=== PATIENT | male | born 1980 | race Caucasian/White ===

== ENCOUNTER 2016-07-02 13:23 | Emergency (ER) | payer SELFPAY ==
[2016-07-02] MEDS ORDERED: SOLUMEDROL 125 MG/2 ML 125 MG/2 ML PDS IV ONE (13:29)
[2016-07-02] MEDS ORDERED: ALBUTEROL/IPRATROPIUM 1 VIAL SOL INH ONE (13:29)
[2016-07-02 13:35] VITALS: TEMP 100.2
[2016-07-02] MEDS ORDERED: ALBUTEROL/IPRATROPIUM 1 VIAL SOL ONE (13:41)
[2016-07-02] MEDS ORDERED: SOLUMEDROL 125 MG/2 ML 125 MG/2 ML PDS ONE (13:41)
[2016-07-02 14:55] VITALS: O2SAT 98
[2016-07-02 15:06] VITALS: BP 170/103; PULSE 131; RESP 20
== END 2016-07-02 14:40 | disposition home or self-care (01) | DRG 918 ==
LOC: ED 13:23
DX: T63.461A Toxic effect of venom of wasps, accidental (unintentional), initial encounter (principal); T78.2XXA Anaphylactic shock, unspecified, initial encounter
CPT/HCPCS: 99283; J2930; J7620

== ENCOUNTER 2017-08-18 13:33 | Emergency (ER) | payer OTHER ==
[2017-08-18] MEDS ORDERED: HYDROMORPHONE 1 MG/ML SYRINGE IV PRN (13:40)
[2017-08-18] MEDS: SODIUM CHLORIDE 0.9% FLUSH 10 ML SOL IV PRN ×2 (13:50→14:16)
[2017-08-18] MEDS ORDERED: HYDROMORPHONE HCL 2 MG/ML SOL ONE (13:51)
[2017-08-18 14:04] LABS: HEMATOCRIT 45 % (39-53); HEMOGLOBIN 15.1 gm/dl (13.5-17.7); MEAN CORPUSCULAR HEMOGLOBIN 28.3 pg (27.0-32.0); MEAN CORPUSCULAR HGB CONC 33.6 gm/dl (32.0-36.0); MEAN CORPUSCULAR VOLUME 84 fL (80-100)
[2017-08-18] MEDS ORDERED: LORAZEPAM 2 MG/ML 10ML MDV 2 MG/ML VIAL IV PRN (14:06)
[2017-08-18] MEDS ORDERED: LORAZEPAM 2 MG/ML SOL ONE (14:14)
[2017-08-18 14:25] LABS: ALBUMIN 3.9 gm/dl (3.4-5.0); ALKALINE PHOSPHATASE 90 IU/L (46-116); ALT 34 IU/L (14-63); AST 15 IU/L (15-37); BILIRUBIN,TOTAL 0.5 mg/dl (0.2-1.0); BLOOD UREA NITROGEN 22 mg/dl (7-18); CALCIUM 9.4 mg/dl (8.5-10.1); CARBON DIOXIDE 26.7 mEq/L (21-32); CHLORIDE 107 mMol/L (98-107); CREATININE 0.97 mg/dl (0.80-1.30); GLOM FILT RATE 89 mL/min (>60); GLUCOSE 118 mg/dl (74-106); POTASSIUM 3.8 mMol/L (3.5-5.1); SODIUM 142 mMol/L (136-145); TOTAL PROTEIN 7.6 gm/dl (6.4-8.2); TROP I < 0.017 ng/ml (0.000-0.056)
[2017-08-18 14:37] LABS: BAND NEUTROPHILS % (MANUAL) 6 %; BASOPHILS % (MANUAL) 0 % (0-3); EOSINOPHILS % (MANUAL) 0 % (0-9); LYMPHOCYTES % (MANUAL) 31 % (10-50); MONOCYTES % (MANUAL) 6 % (0-12); NEUTROPHILS % (MANUAL) 57 % (37-80); NORMAL RBCS PRESENT
[2017-08-18 15:04] VITALS: BP 123/91; PULSE 123; RESP 20; O2SAT 98
== END 2017-08-18 15:19 | disposition home or self-care (01) | DRG 561 ==
LOC: ED 13:33
DX: S22.41XD Multiple fractures of ribs, right side, subsequent encounter for fracture with routine healing (principal); R06.02 Shortness of breath
CPT/HCPCS: 36415; 71045; 80053; 84484; 85007; 85027; 85378; 96374; 96375; 99283; 99285; J1170; J2060

== ENCOUNTER 2018-01-20 16:20 | Emergency (ER) | payer OTHER ==
[2018-01-20 16:38] VITALS: BP 120/71; PULSE 118; RESP 22; TEMP 97.6; O2SAT 97
[2018-01-20] MEDS ORDERED: KETOROLAC TROMETHAMINE 30 MG/ML SOL IM ONE (16:50)
[2018-01-20] MEDS ORDERED: TRAMADOL HYDROCHLORIDE 50 MG TAB PO ONE (16:50)
[2018-01-20] MEDS ORDERED: ACETAMINOPHEN 500 MG 500 MG TAB PO ONE (16:51)
[2018-01-20] MEDS ORDERED: KETOROLAC TROMETHAMINE 30 MG/ML SOL ONE (17:00)
[2018-01-20] MEDS ORDERED: ACETAMINOPHEN 500 MG 500 MG TAB ONE (17:00)
[2018-01-20] MEDS ORDERED: TRAMADOL HYDROCHLORIDE 50 MG TAB ONE (17:00)
== END 2018-01-20 17:14 | disposition home or self-care (01) | DRG 603 ==
LOC: ED 16:20
DX: L05.01 Pilonidal cyst with abscess (principal)
CPT/HCPCS: 96372; 99282; J1885; A9270-GY